=== PATIENT | male | born 1990 ===

== ENCOUNTER 2019-01-02 15:26 | Emergency (ER) | payer OTHER ==
[~2019-01-02 15:26] MED LIST: HYDROGEN PEROXIDE TP ONE; NACL 0.9% IR ONE; XYLOCAINE 2% INFILTRATI ONE
[2019-01-02] MEDS ORDERED: MORPHINE IV ONE ×2 (15:33→16:27)
--- NOTE | 2019-01-02 16:05 | XRay Report ---
PROCEDURE: XR HAND 3+V LT TECHNIQUE: Left hand radiographs, 3 views. HISTORY: MAN VS METAL DOOR TODAY; BLOODY AND LACERATED FINGERS. Left hand pain / injury COMPARISONS: None currently available. FINDINGS: There is no acute fracture. There is no evidence for healing fracture. There is no acute dislocation. No significant arthrosis. There is no cortical destruction to suggest osteomyelitis. There are no suspicious osseous lesions. There are no radiopaque foreign objects. IMPRESSION: * No acute osseous findings. This document is electronically signed by Bhavin Aguirre MD., Jan 02 2019 04:03:45 PM ET
[2019-01-02] MEDS ORDERED: NACL 0.9% 500 ML IR ONE (16:08)
[2019-01-02] MEDS ORDERED: XYLOCAINE 1%/ EPI 1:100,000 INFILTRATI ONE ×2 (16:11→16:24)
[2019-01-02] MEDS ORDERED: XYLOCAINE 1% 20 mL INFILTRATI ONE (16:24)
[2019-01-02] MEDS ORDERED: BOOSTRIX IM ONE (16:24)
--- NOTE | 2019-01-02 16:24 | Emergency Department Report ---
Upper Extremity - HPI Chief Complaint: Wound/Laceration Stated Complaint: RT HAND FINGERS CUT/PAIN Time Seen by Provider: 01/02/19 15:54 Upper Extremity: Left Hand Occurred When: Today Mechanism: Crush Severity: severe Symptoms: Yes Pain with Movement, Yes Swelling, Yes Laceration or Abrasion, No Deformity, No Limited Range of Movement, No Numbness, No Weakness, No Bruising/Ecchymosis Other History: Mr. Burden is a 28 yo [place] speaking male who injured his non- dominant left hand this afternoon at work. He was attempting to fix a garage door which would not close. As the door closed, his hand was caught by the hand and threshold. His hand was crushed and cut by the heavy metal door. He has severe pain. He has pins needles sensation. He has lacerations and bleeding on dorsal aspect of two fingers. [place] interpretation provided by our ED staff member and friend at the bedside. Unknown tetatus status. ED Review of Systems ROS: Stated complaint: RT HAND FINGERS CUT/PAIN Other details as noted in HPI Constitutional: denies: fever Skin: other (laceration crush injury). denies: change in color Neurological: paresthesias. denies: numbness ED Past Medical Hx - Past Medical History Previous Medical History?: No - Surgical History Past Surgical History?: No - Social History Smoking Status: Never Smoker Substance Use Type: None - Medications Home Medications: Home Medications Medication Instructions Recorded Confirmed Last Taken Type HYDROcodone/APAP 5-325 [[place] 1 each PO Q6HR PRN #15 tablet 01/02/19 Unknown Rx 5/325] cephALEXin [Keflex] 500 mg PO Q6HR 7 Days #28 capsule 01/02/19 Unknown Rx Upper Extremity Exam - Exam General: Vital signs noted. No distress. Alert and acting appropriately. Head and Torso: No HEENT Abnormality, No Neck Tenderness, No Chest/Lungs Abnormality, No Abdominal Tenderness, No Back Tenderness Shoulder Exam: Yes Normal Range of Motion in Shoulder, No Shoulder Tenderness, No Clavicle Tenderness, No Shoulder Deformity, No AC Joint Tenderness Arm Exam: No Arm/Humerus Tenderness, No Arm Deformity Elbow: Yes Normal Range of Motion in Elbow, No Elbow Tenderness, No Elbow Deformity Forearm: No Forearm Tenderness, No Forearm Deformity, No Pain with Pronation, No Pain with Supination Wrist: Yes Normal ROM in Wrist, No Wrist Tenderness, No Wrist Deformity, No Snuffbox Tenderness, No Pain with Axial Thumb Compression Hand: Yes Hand Tenderness, Yes Digit Tenderness, Yes Normal ROM in Digit(s), No Digit(s) Deformity, No Tendon Dysfunction CMS Exam: Yes Broken Skin (vertical jagged 4 cm middle finger 2 cm vertical laceration middle finger 2 cm laceration ring finger) ED Course Vital Signs 01/02/19 01/02/19 15:36 15:50 Pulse Rate 120 H Respiratory 16 Rate Blood Pressure 154/102 Blood Pressure 146/95 [Right] O2 Sat by Pulse 98 Oximetry - Laceration /Wound Repair Left Dorsal Finger Wound Location: upper extremity Wound's Depth, Shape: into muscle, irregular Wound Explored: hand dirty with dust dirt from work Irrigated w/ Saline (ccs): 500 (after soapy water rinse) Betadine Prep?: Yes Anesthesia: 1% Lidocaine Volume Anesthetic (ccs): 6 (digit blocks on 3rd and 4th digits) Wound Debrided: extensive Wound Repaired With: sutures Suture Size/Type: 5:0, proline, nylon Number of Sutures: 15 Layer Closure?: No Sterile Dressing Applied?: Yes Progress: 13 sutures for the two lacerations total 6 cm in length in dorsum of left middle finger 2 sutures prolene left ring finger laceration ED Medical Decision Making - Radiology Data Radiology results: report reviewed Left hand: Radiographs 3 views according to radiology report: No acute fracture or dislocation no radiopague foreign bodies Critical care attestation.: If time is entered above; I have spent that time in minutes in the direct care of this critically ill patient, excluding procedure time. ED Disposition Clinical Impression: Hand crush injury, Hand laceration Disposition: TO HOME OR SELFCARE Is pt being admited?: No Does the pt Need Aspirin: No Condition: Stable Instructions: Suture Care (ED), Laceration (ED) Additional Instructions: Regrese a la jyotsna de emergencias en 10 a 14 dorsey para que le retiren las suturas. Recomiendo ted a un cirujano de fernandez esta semana. Prescriptions: cephALEXin [Keflex] 500 mg PO Q6HR 7 Days #28 capsule HYDROcodone/APAP 5-325 [[place] 5/325] 1 each PO Q6HR PRN #15 tablet PRN Reason: Pain Referrals: SHAJI VALLECILLO MD [Referring] - 2-3 Days Forms: Work/School Release Form(ED) Print Language: BOLIVIAN
[2019-01-02] MEDS ORDERED: XYLOCAINE 2% INFILTRATI ONE (16:27)
[2019-01-02] MEDS ORDERED: ceFAZolin 2 GM in NACL 0.9% 100 ML IV ONE (16:32)
[2019-01-02] MEDS ORDERED: HYDROGEN PEROXIDE ONE (17:20)
[2019-01-02 18:02] VITALS: BP 136/95
== END 2019-01-02 18:01 | disposition home or self-care (01) ==
LOC: ED 15:26
DX: S67.21XA Crushing injury of right hand, initial encounter (principal); S61.411A Laceration without foreign body of right hand, initial encounter; W31.9XXA Contact with unspecified machinery, initial encounter; Y93.89 Activity, other specified; Y92.89 Other specified places as the place of occurrence of the external cause; Y99.8 Other external cause status
CPT/HCPCS: 12002; 73130; 90471; 90715; 96365; 96375; 96376; 99283; J0690; J2270